=== PATIENT | male | born 1990 | race Caucasian/White ===

== ENCOUNTER 2020-02-24 14:00 | Outpatient (RCR) | payer OTHER, SELFPAY ==
--- NOTE | 2019-12-16 11:57 | HP.PTEVAL_ITS ---
Patient's Visit Information SONAL MARCELINO is a 29 year old M referred to Physical Therapy by Dr. Tiago Blackmon MD with a diagnosis of R biceps injury s/p repair mid November biceps tendon. Date of Evaluation: 12/16/19 Physical Therapist: Rancho Joyce, DPT, OCS, CSCS - Visit Plan Frequency: 2x /Week Duration: 4-6 Weeks Plan: 2x/week for 4-6 week for. start AROM elbow flexiona dn eextension and supination pronation and scar massage. Strengthening of R UE except bicep and supination(not allowed yet,s ee below). ice if needed. until end of December no resisted supination or biceps flexion. Sept 1-14 start wrist and forearm strength. Mis spetember can start elbow strengthening. all this is per protocol on script. - Subjective Was lifting steel plate adn biceps snapped on 11/17/19 . Bad pain 24 hours later after a day of throbbing. ER that night. Gave naproxen and sling. Saw ortho at [facility] who sent to [facility] and got MRI over the next week. MRI showed biceps tendon tear. Pinned biceps back about a week and a half alter around 11/27. Was put in a sling for first 24 hours. After that WBAT on elbow and not given many instructions as far as precaution go. Pt is trying to avoid lifting heavy bags. Pain is not bad unless he rotates it showing supination and it catches quickly for 5 minutes. Pain gets to 6/10 trasniently in anterior elbow and into forearm. Sleep is good now. No meds needed for pain. Doing basic ADLs with both arms but uses L more than usual, is R handed. Works on for a living and is off now at least 6 weeks total. 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 Hobbies include shooting whcih he has not done with R arm. Also enjoys fishing but has not done lately. - Pain R elbow anteriorly Pain Intensity (Out of 10): 0 Pain Intensity Range: 0, 6 - Objective Pt ambulates and trasnfers normal. Has incision on R anterior elbow which is healed and dry, mild scar tissue palpable. Posture is forward head and scapula. cervical aROM fulla nd painfree. Scap aROM fulla nd painfree. B shoulder aROM fulla nd painfree in shoulders. R elbow to 60 degrees vs L. Extension is -8 R and -2 L. R 60 supination and pronation, L is 90 on both sup and pronation. Has some pulling pain on R described as stretching at the end of all of thesemovements trasniently. thumb and wrost ext, flexion and deviations all full and WNL. reflexes rick dn tri 2/3 B. Sensation WNL to gross light touch B UE. - Goals Goal 1:: Full aROM R elbow and wrist without pain. Goal Time Frame: 2-4 Weeks Goal 2:: Pain 0/10 at all times adn patient feel 90% improved Goal Time Frame: 4-6 Weeks Goal 3:: Pt ready to return to work full duty as allowed by doctor. Goal Time Frame: 6-8 Weeks Goal 4:: Quick DASH score of 15 or less. - Rehabilitation Potential Physical Therapy Diagnosis: R biceps injury Rehabilitation Potential: Good - Anticipated Interventions Patient/Client Instruction: Educate patient on: Condition, Plan of Care For the Purpose of:: To decrease pain, To increase ROM, To improve muscle performance and motor function, To increase tolerance to activity/condition/position Therapeutic Exercise to Include: Strength training, Passive ROM, Active ROM For the Purpose of:: To decrease pain, To increase ROM, To improve muscle performance and motor function, To increase tolerance to activity/condition/position, To improve ability of physical actions for home/community/work/leisure Manual Therapy Techniques to Include: Scar massage For the Purpose of:: To decrease pain, To increase ROM Cryotherapy (ice pack, ice massage): Yes For the Purpose of:: To decrease swelling/inflammation Thank you for the opportunity to evaluate your patient. For Medicare and Medicare HMO plans, please review the plan of care and approve it. It will need to be FAXED BACK to us at [phone] for Medicare purposes. For Medicare only, by signing this I certify the plan of care. Please let me know if there are questions or concerns regarding this plan of care. Physician Signature: Date:
--- NOTE | 2020-01-08 13:46 | HP.PTREVAL ---
Dr. Tiago Blackmon MD, It has been my pleasure to treat SONAL MARCELINO over the last 8 visits for R biceps injury s/p repair mid November biceps tendon. Please see the progress note below for an update on the physical therapy plan of care! Subjective: To doc in 3 weeks. Doing well with wrist strengthening. Elbow was irritated this morning. Pain 0/10 in last week. Motion is full. Sleeps well. Doing odds adn ends around the house. Objective/Function: Full aROM neck, scap, shoulder, elbow, wrist adn fingers without pain. Pt is I with wrist strength and pics given and is staying active within his limitations. Limted in progression of therapy by his protocol on script . Doing Excellent. Plan Plan: Pt to do wrist strength adn ROM at home and f/u two weeks for doctors note and attempt bisceps strength and supination gently to tolerance and POC regarding strengthening. Goals Goal 1:: Full aROM R elbow and wrist without pain. Goal Time Frame: 2-4 Weeks Goal Progress: Goal Met Goal 2:: Pain 0/10 at all times adn patient feel 90% improved Goal Time Frame: 4-6 Weeks Goal Progress: 0/10 met Goal 3:: Pt ready to return to work full duty as allowed by doctor. Goal Time Frame: 6-8 Weeks Goal 4:: Quick DASH score of 15 or less. Anticipated Interventions Patient/Client Instruction: Educate patient on: Condition, Plan of Care For the Purpose of:: To decrease pain, To increase ROM, To improve muscle performance and motor function, To increase tolerance to activity/condition/position Therapeutic Exercise to Include: Strength training, Passive ROM, Active ROM For the Purpose of:: To decrease pain, To increase ROM, To improve muscle performance and motor function, To increase tolerance to activity/condition/position, To improve ability of physical actions for home/community/work/leisure Manual Therapy Techniques to Include: Scar massage For the Purpose of:: To decrease pain, To increase ROM Cryotherapy (ice pack, ice massage): Yes For the Purpose of:: To decrease swelling/inflammation Please do not hesitate to contact me at [phone] by phone or if you have questions or concerns regarding this new plan of care! Sincerely, Racnho Joyce, DPT, OCS, CSCS
--- NOTE | 2020-02-03 14:52 | HP.PTREVAL_ITS ---
Dr. Tiago Blackmon MD, It has been my pleasure to treat SONAL MARCELINO over the last 13 visits for R biceps injury s/p repair mid November biceps tendon. Please see the progress note below for an update on the physical therapy plan of care! Subjective: No pain and doing well with exercises. 5# curls stil pretty tiring but improving , no pain. Cas join and continue strengthening 3x.week. Shouldn't have an issue going back to work. Sleeping is good. Avoids only heavy bags at home(feedbags) Objective/Function: Full aROM R UE without pain. 4+/5 strength in R UE exxcept biceps 4-, flexion shoulder 4- and supination 4-. No pain. gOING THE RIGHT WAY, WILLING TO COTNINUE ON HIS OWN IN GYM 3 X/WEEK Plan Plan: WEEKLY FOR GRADUALLY MORE AGGRESSIVE EXERICES FOR BICEPS, SUPINATION AND r UPPER QUARTER WITH MULTI JOINT AND GENTLE BALLISTICS, ALSO ANSWER QUESTIONS ABOUT CURRENT WORKOUT NEEDED. Goals Goal 1:: Full aROM R elbow and wrist without pain. Goal Time Frame: 2-4 Weeks Goal Progress: Goal Met Goal 2:: Pain 0/10 at all times adn patient feel 90% improved Goal Time Frame: 4-6 Weeks Goal Progress: 0/10 met Goal 3:: Pt ready to return to work full duty as allowed by doctor. Goal Time Frame: 6-8 Weeks Goal Progress: Progressing Goal 4:: Quick DASH score of 15 or less. Goal Progress: Goal Met Anticipated Interventions Patient/Client Instruction: Educate patient on: Condition, Plan of Care For the Purpose of:: To decrease pain, To increase ROM, To improve muscle performance and motor function, To increase tolerance to act ivity/condition/position Therapeutic Exercise to Include: Strength training, Passive ROM, Active ROM For the Purpose of:: To decrease pain, To increase ROM, To improve muscle performance and motor function, To increase tolerance to activity/condition/position, To improve ability of physical actions for home/community/work/leisure Manual Therapy Techniques to Include: Scar massage For the Purpose of:: To decrease pain, To increase ROM Cryotherapy (ice pack, ice massage): Yes For the Purpose of:: To decrease swelling/inflammation Please do not hesitate to contact me at [phone] by phone or if you have questions or concerns regarding this new plan of care! Sincerely, Rancho Joyce, DPT, OCS, CSCS
--- NOTE | 2020-04-19 17:28 | HP.PTDCSUM ---
It has been my pleasure to treat SONAL MARCELINO referred by Dr. Tiago Blackmon MD, with the diagnosis of R biceps injury s/p repair mid November biceps tendon for a total of 16 visit(s). Discharge Date: 02/24/20 Please see the following information for a summary of their discharge status. Subjective: No probems. Ready to be done adn released to work next Saturday after Saturday visit. Saw ortho last week and released this Saturday. Activities at home are normal and started a gym membership to [employer]. R elbow anteriorly Pain Intensity (Out of 10): 0 % Improvement: 95 Objective/Function: Full aROM elbow. 5/5 strength biceps , triceps, flexion and abd shoulder. Incision healed well. Pt withotu complaints and ready for d/c subjectively. Goal 1:: Full aROM R elbow and wrist without pain. Goal Progress: Goal Met Goal 2:: Pain 0/10 at all times adn patient feel 90% improved Goal Progress: Goal Met Goal 3:: Pt ready to return to work full duty as allowed by doctor. Goal Progress: Goal Met Goal 4:: Quick DASH score of 15 or less. Goal Progress: Goal Met Plan: d/c If there are questions or concerns regarding this patient's physical therapy, please feel free to call me at [phone]. Thank you for the referral of this patient. Sincerely, Rancho oJyce, DPT, OCS, CSCS
== END 2020-02-24 19:00 | disposition home or self-care (01) ==
LOC: PT 14:00
PROVIDERS: Referring Provider Orthopaedic Surgery Hand Surgery; Visit Provider Orthopaedic Surgery Hand Surgery
DX: S46.201D Unspecified injury of muscle, fascia and tendon of other parts of biceps, right arm, subsequent encounter (principal)
CPT/HCPCS: 97110; 97140; 97161; 97530

== ENCOUNTER 2022-08-31 12:48 | Emergency (ER) | payer OTHER, SELFPAY ==
[2022-08-31 12:49] VITALS: BP 162/83; PULSE 113; RESP 16; TEMP 36.4; O2SAT 97; BMI 28.5
--- NOTE | 2022-08-31 13:32 | EDS_ITS ---
HPI History of Present Illness Chief Complaint: Back Detail of Chief Complaint: Low back pain. Informant: patient Onset/Context/Timing Onset: Today and Yesterday Context: Gradual Onset Injury: bending Timing: Continuous Quality: Dull and Aching Location: Lumbar Current Severity: Mild Maximum Severity: Moderate Worsened by: improves with Movement Relieved by: Remaining Still Associated Symptoms Associated Symptoms: Negative for Numbness, Tingling, Radiation to Right Leg, Radiation to Left Leg, Fever, Abdominal Pain, Dysuria, Unable to Ambulate, Unable to Transfer, Urinary Retention, Urinary Incontinence, Constipation or Fecal Incontinence Narrative Narrative: 32-year-old male has been doing exercises to build his core yesterday was cleaning up brush branches etc. carrying twisting and bending to pick those up. He developed low back pain since yesterday. He did a telemedicine visit they placed him on Flexeril which he said has been no help. Denies any bowel or bladder incontinence. No weakness or numbness. No prior back history or surgery. No fever. No dysuria. Worse with movement. Prior similar symptoms: Yes and With Prior Back Pain Recent Illness/Hospitalization: No PFSH PFSH Medical History no medical history Home Medications acetaminophen 325 mg tablet (Tylenol) 650 mg PO Q6H PRN PRN Mild Pain (scale 0- 3)/T>100.7 10/31/16 [Rx Last Taken Unknown] docusate sodium 100 mg capsule (DOK) 200 mg PO BID PRN PRN Constipation ##30 10/31/16 [Rx Last Taken Unknown] oxycodone 5 mg tablet 5 mg PO Q6H PRN PRN Pain ##10 10/31/16 [Rx Last Taken Unknown] metaxalone 800 mg tablet 800 mg PO TID 7 days #21 tabs 08/31/22 [Rx Last Taken Unknown] Allergy/AdvReac Type Severity Reaction Status Date / Time No Known Allergies Allergy Verified 08/31/22 12:52 Social History Smoking Status: Current some day smoker tobacco type: cigarettes ROS ROS ED ROS Narrative Lower back pain. Review of Systems ROS Unobtainable: Denies due to encephalopathy Constitutional Constitutional ED: Denies chills or fever(s) Eyes Eyes: Denies blurry vision ENT ENT ED: Denies ear pain Cardiovascular Cardiovascular: Denies chest pain Respiratory/Chest Respiratory/Chest: Denies dyspnea Gastrointestinal Gastrointestinal: Denies abdominal pain, constipation, diarrhea, melena, nausea or vomiting Genitourinary Genitourinary ED: Denies dysuria or hematuria Musculoskeletal Musculoskeletal: Reports back pain; Denies arthralgias, myalgias or neck pain Integumentary Denies abscess or Abrasions Neurologic Neurologic: Denies headache(s) Psychiatric Psychiatric: Denies anxiety, depression, suicidal ideation or suicidal thoughts Endocrine Endocrinology: Denies cold intolerance Hematologic/Lymphatic Hematologic/Lymphatic: Denies easy bleeding Allergic/Immunologic Allergic/Immunologic ED: Denies mouth swelling EXAM Physical Exam Narrative Exam Narrative: 32-year-old male no acute distress. Vital signs stable afebrile. Sitting upright in a chair. H EENT exam unremarkable. Neck nontender no lymphadenopathy. Full range of motion. Lungs clear. Heart regular rate and rhythm no murmur. Abdomen soft nontender. Moving all 4 extremities. Neurovascular intact. Normal motor strength. Sensation. No cauda equina no saddle anesthesia. Back mild lower lumbar tenderness. No ecchymosis or bruising. No redness or warmth. No signs of trauma. Neurologic exam normal. Normal motor strength and sensation all extremities. Able to stand. Const Vital Signs: 08/31/22 12:49 Temperature 97.6 F L Temperature Source Temporal Pulse Rate 113 H Respiratory Rate 16 Blood Pressure 162/83 H Blood Pressure Mean 109 Pulse Ox 97 Oxygen Delivery Method Room Air Positive well nourished and well developed; Negative for obese, cachectic, contractures or unkempt General Appearance ED: well developed and NAD; Negative for unkempt, cachectic, contractures or pallor Nutritional Appearance: Negative for cachectic or obese HEENT Reports moist mucous membranes; Denies dry mucous membranes Negative for trauma or tenderness Mouth ED: No dry mucous membranes Mouth: No dry mucous membranes Eyes PERRL and EOMs intact bilaterally General Eye ED: Negative for pale conjunctiva or scleral icterus Neck no lymphadenopathy, supple and no JVD General: Negative for tenderness Thyroid: Negative for other Chest Wall Chest: Negative for other Resp normal respiratory effort and clear to auscultation bilaterally Effort and Inspection: Negative for pain with movement Auscultation: Negative for rales, rhonchi, wheezes or diminished lung sounds Cardio regular rate, regular rhythm, S1 normal heart sound, S2 normal heart sound and no murmurs Palpation: Negative for palpable S3 Rate: Negative for bradycardia Rhythm: Negative for abnormal rhythm Bruits: Negative for other GI normal to inspection, nondistended, normoactive bowel sounds, soft to palpation, non-tender, non-distended and no masses Inspection: Negative for abdominal distention Auscultation: Negative for hyperactive bowel sounds Palpation: Negative for tender or guarding Back/Spine normal to inspection; Negative for no thoracic nor lumbar tenderness Back/Spine Narrative: Lumbar tenderness. No redness or warmth. No bruising or trauma. General Back: Negative for CVA tenderness Cervical Spine: Negative for cervical spine tenderness Thoracic Spine / Upper Back: Negative for paraspinal muscle tenderness Extremity normal to inspection and no clubbing, cyanosis or edema General Extremety ED: Negative for edema or tenderness General Extremity: Negative for edema Neuro oriented x3 and no sensory deficits noted Sensorium / Orientation: alert; Negative for confused, lethargic or stuporous Sensory Exam: No other Motor Exam: strength 5/5 throughout; Negative for strength abnormal Psych mental status grossly normal Appearance: Negative for unkempt Attitude: No agitated and No other Mood & Affect: Negative for depressed, sad or tearful Skin no rashes or lesions noted and no wounds General Skin Exam: Negative for jaundice or pallor Lesions: No lesion noted Rashes: No rashes noted Trauma: Negative for abrasion or puncture Wounds: Negative for wounds noted Image ED - Body Diagram Man: 1. Lower lumbar tenderness. MDM MDM MDM Narrative Medical decision making narrative: Lower lumbar pain with muscle spasm. Placed on Skelaxin. Stop the Flexeril. Ibuprofen for pain. He did not fall or any significant trauma he does not need x-ray. He has no findings consistent with the need for an emergent MRI. Ibuprofen and Tylenol for pain. Skelaxin as a muscle relaxant. Follow-up if not improving. Return if a lot worse. History & Record Review Discussion w/independent historian: Patient Discharge Plan Triage Chief Complaint: Back ED Provider: Wes Metz Dx/Rx/DC Orders Clinical Impression: Acute lumbar myofascial strain, Back muscle spasm Instructions: ED Back Spasm, No Trauma, ED Back Sprain/Strain Prescriptions: New metaxalone 800 mg tablet 800 mg PO TID 7 Days Qty: 21 0RF No Action acetaminophen [Tylenol] 325 MG tablet 650 mg PO Q6H PRN PRN (Reason: Mild Pain (scale 0-3)/T>100.7) 0RF docusate sodium [DOK] 100 MG capsule 200 mg PO BID PRN PRN (Reason: Constipation ) Qty: 30 0RF oxycodone 5 MG tablet 5 mg PO Q6H PRN PRN (Reason: Pain) Qty: 10 0RF Primary Care Provider: Care Physician,No Primary Referrals: Sy Garza MD [Med Staff - [facility]] - 1 Week if not improving Care Physician,No Primary [Primary Care Provider] - Activity Restrictions/Additional Instructions: Shower, warm bath and massage to relax the muscles. Motrin for pain and inflammation. Tylenol for pain. Stop your current muscle relaxant. Start the Skelaxin which is 1 pill 3 times a day for a week. It will take several days but eventually make this feel better. It will not work after the first pill. You may drive while using it. Follow-up with a doctor if not improving. Return if fever or leg weakness. Disposition Disposition: Home, Self Care
[2022-08-31] MEDS: Ketorolac 60 MG/2 ML Vial IM (14:19)
== END 2022-08-31 14:28 | disposition home or self-care (01) ==
LOC: ED 13:47
PROVIDERS: Emergency Provider Emergency Medicine; Referring Provider Emergency Medicine; Visit Provider Emergency Medicine
DX: S39.012A Strain of muscle, fascia and tendon of lower back, initial encounter (principal); M62.830 Muscle spasm of back; F17.210 Nicotine dependence, cigarettes, uncomplicated; X50.1XXA Overexertion from prolonged static or awkward postures, initial encounter
CPT/HCPCS: 96372; 99282